=== PATIENT | male | born 1985 | race Two or more races ===

== ENCOUNTER 2025-06-17 21:56 | Day surgery (SDC) | payer MEDICAID, SELFPAY ==
[2025-06-17 23:13] VITALS: BP 120/77; PULSE 82; RESP 16; TEMP 37.2; O2SAT 96; BMI 26.6
--- NOTE | 2025-06-17 23:47 | XR_ITS ---
Examination: CT abdomen with intravenous contrast CT pelvis with intravenous contrast 2-D coronal reconstructions 2-D sagittal reconstructions Date and time of exam:June 18, 2025, 0121 hrs. Indications: Right abdominal pain epigastric pain onset today.. CTDI: vol (mGy) 6.71. DLP: (mGycm) 405. Technique: Multiple axial sections of the abdomen and pelvis have been obtained. 64 slice high-resolution scanner used. 3 mm axial sections have been obtained, post intravenous injection 60 cc [id number]-[id number]. 2-D sagittal, coronal reconstructions obtained. Low dose protocols were performed. One or more of the following dose reduction techniques were used; automated exposure control, adjustment of the mA and/or KV according to patient size, use of iterative reconstruction technique. Findings: No focal liver or splenic lesions. No gallstones. No pancreatic or adrenal mass. No renal or ureteral calculi. Aorta normal size The appendix is fluid-filled thickened with inflammatory change. Tip of the appendix is below the right lobe of the liver, axial image 84 No free air, no pelvic abscess Urinary bladder intact L5-S1 central left paracentral disc protrusion indenting the ventral left margin thecal sac Impression: Acute appendicitis, no pelvic abscess
[2025-06-18] VITALS (11 sets, daily range): BP systolic 107–129; BP diastolic 68–86; PULSE 57–86; RESP 12–18; TEMP 36.3–36.9; O2SAT 92–100
[2025-06-18] LABS: Lactate (Lactic Acid) 1.6 mMol/L (0.4-2.0)
[2025-06-18 00:01] LABS: Basophils # (Auto) 0.1 Thou/mm3 (0.0-0.2); Basophils % (Auto) 0 % (0-2.5); Eosinophils # (Auto) 0.0 Thou/mm3 (0.0-0.5); Eosinophils % (Auto) 0 % (0-10); Hematocrit 45.2 % (41.0-53.0); Hemoglobin 15.4 g/dL (13.5-16.0); Immature Granulocytes Auto 0.06 Thou/mm3 (0.00-0.00); Lymphocytes # (Auto) 1.0 Thou/mm3 (1.0-4.8); Lymphocytes % (Auto) 7 % (10-50); Mean Corpuscular HGB Conc 34.1 g/dl (31.0-37.0); Mean Corpuscular Hemoglobin 30.8 pg (25.0-35.0); Mean Corpuscular Volume 90 fL (80-100); Monocytes # (Auto) 0.6 Thou/mm3 (0.0-0.8); Monocytes % (Auto) 5 % (0-12); Neutrophils # (Auto) 12.4 Thou/mm3 (1.8-7.7); Neutrophils % (Auto) 87 % (37-80); Nucleated Red Blood Cell # 0.00 Thou/mm3 (0.00-0.00); Nucleated Red Blood Cell % 0 /100 WBC (0); Platelet Count 214 Thou/mm3 (140-440); RDW Standard Deviation 40.5 fL (35.1-43.9); Red Blood Count 5.00 Miln/mm3 (4.50-5.90); White Blood Count 14.2 Thou/mm3 (3.8-10.6)
--- NOTE | 2025-06-18 00:05 | XR_ITS ---
Examination: Abdomen sonogram, Limited Date and time of exam: June 18, 2025, 0026 hrs. Indications: Right upper abdominal pain beginning today. Technique: Real-time velázquez scale transabdominal sonographic images of the upper abdomen obtained. Findings: Normal gallbladder. Normal common bile duct 0.10. Pancreatic head 2.0 cm Liver 11.7 cm smooth contour Normal hepatopedal portal venous flow Patent IVC Impression: Negative study
[2025-06-18] MEDS: ONDANSETRON INJ 2 MG/ML INJ 2 ML 4 MG IV (00:15)
[2025-06-18] MEDS: MORPHINE SULF INJ 4 MG/ML VIAL 5 MG IV (00:15)
[2025-06-18 00:30] LABS: Alanine Aminotransferase 38 U/L (10-49); Albumin, Serum 5.0 gm/dL (3.5-5.0); Albumin/Globulin Ratio 2.0 (1.2-2.2); Alcohol, Blood Medical 18.7 mg/dL (0-10.0); Alkaline Phosphatase 75 U/L (46-116); Anion Gap 12 (7-16); Aspartate Amino Transferase 26 U/L (0-34); BUN/Creatinine Ratio 11 Ratio (12-20); Bilirubin,Total 0.6 mg/dL (0.3-1.2); Blood Urea Nitrogen 9 mg/dL (9-23); Calcium 9.8 mg/dL (8.3-10.6); Calcium (Corrected) 9.8 mg/dL (8.5-10.1); Carbon Dioxide 23.0 mMol/L (20.0-31.0); Chloride 106 mMol/L (98-107); Creatinine (Component) 0.8 mg/dL (0.6-1.3); Estimated Creatinine Clearance 110.8 mL/min (>60); Globulin 2.5 gm/dL (2.3-3.5); Glucose 94 mg/dL (74-106); Lipase 38 U/L (12-53); Osmolality,Calculated 279 (275-295); Potassium 4.2 mMol/L (3.4-5.1); Procalcitonin < 0.04 ng/ml (0.0-0.49); Sodium 141 mMol/L (136-145); Total Protein 7.5 gm/dL (5.7-8.2); eGFR > 60 See Note
[2025-06-18 00:53] LABS: Collection Type, Urine Clean Catch; RBC,Urine 0 /hpf (0-3); WBC,Urine 0 /hpf (0-5)
[2025-06-18 01:06] LABS: Amphetamine/Methamp Scrn,U Negative (Negative); Barbiturate Screen,Urine Negative (Negative); Benzodiazepines Screen,Urine Negative (Negative); Benzoylecgonine Screen, Ur Negative (Negative); Fentanyl Screen,Urine Negative (Negative); Opiate Screen,Urine Negative (Negative); THC Screen,Urine Negative (Negative)
[2025-06-18 01:12] LABS: Amorphous Crystals,Urine Present (Absent); Bilirubin,Urine Negative (Negative); Blood,Urine Negative (Negative); Clarity,Urine Turbid (Clear/Hazy); Color,Urine Yellow (Lt Yel-Yel); Culture Indicated,Urine Not Indicated; Glucose, Urine Negative (Negative); Ketones,Urine Trace (Negative); Leukocyte Esterase,Urine Negative (Negative); Nitrite,Urine Negative (Negative); PH,Urine 7.0 (5.0-7.0); Protein,Urine Trace (Neg - Trace); Specific Gravity,Urine 1.027 (1.001-1.035); Squamous Epithelial Cell,Urine 1 /hpf (0-5); Urobilinogen,Urine Negative mg/dL (0.0-1.0)
--- NOTE | 2025-06-18 01:45 | PRELIM_ITS ---
Gallbladder ultrasound. June 18, 2025 at 0026 hours Clinical history: Right upper quadrant/epigastric pain. Findings: The visualized liver is normal in echogenicity. There is no intrahepatic biliary duct dilatation. The portal vein demonstrates hepatopetal flow. No gallbladder calculus, wall thickening or pericholecystic fluid is identified. The common duct is normal in caliber at 1 mm. The inferior vena cava is patent. Impression: No obvious abnormality. Report Electronically Signed By: Tr Pinedo 06/18/2025 1:45:25 AM [EST]
--- NOTE | 2025-06-18 02:04 | PRELIM_ITS ---
CT scan of the abdomen and pelvis with intravenous contrast (axial sections with sagittal and coronal reformats) June 18, 2025 0121 hours Clinical History: RUQ/epigastric pain No prior study is available for comparison. Findings: Bibasilar dependent atelectasis is present. Fatty infiltration of the liver is noted. The gallbladder, pancreas, spleen, kidneys and adrenals are unremarkable. No evidence of bowel dilatation. The appendix is thickened, measuring 10 mm in caliber with mural enhancement and periappendiceal fat stranding (coronal images 74-87/140). The urinary bladder is unremarkable. There is no free fluid or free air.There is no adenopathy. Mild degenerative changes are identified in the spine. There is a medium to large central/left paracentral disc protrusion indenting the thecal sac at L5-S1. Impression: Acute appendicitis. No free air or abscess. Medium to large central/left paracentral disc protrusion at L5-S1. Consider elective followup with MRI. Other findings as described above. Discussion Details: Results verbally communicated to : Dr. Mcgovern at 01:59 AM 06/18/2025 Report Electronically Signed By: Tr Pinedo 06/18/2025 2:04:10 AM [EST]
[2025-06-18] MEDS: SODIUM CHLORIDE 0.9% 1000 ML 1,000 ML 999 ML IV (02:40)
[2025-06-18] MEDS: PIPER/TAZO 3.375 GM PREMIX 3.375 GM/50 ML BAG IV (02:41)
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
[2025-06-18 03:24] LABS: INR 1.0 (0.9-1.3); Partial Thromboplastin Time 25.9 Seconds (22.0-36.0); Prothrombin Time 11.4 Seconds (9.0-12.2)
--- NOTE | 2025-06-18 09:24 | PC.NURSE ---
report given to OR nurse patient to have surgery at 10;30am
--- NOTE | 2025-06-18 09:44 | PD.SURHP ---
HPI Date of Admission 06/18/2025 Chief Complaint Chief Complaint: Right lower quadrant abdominal pain with nausea and vomiting HPI 39-year-old male presented to the emergency department with acute onset of abdominal pain. His pain started 2 days ago around periumbilical region. The pain was initially intermittent. Since yesterday his pain has become persistent, progressively worse and localized over right lower quadrant. He has had nausea and vomiting, but denies fever, chills, diarrhea, constipation or dysuria. He denies having similar symptoms in the past. Review of Systems Constitutional Constitutional: Denies chills and Denies fever(s) Cardiovascular Cardiovascular: Denies chest pain Respiratory Respiratory: Denies cough Gastrointestinal Gastrointestinal: Reports abdominal pain, Reports nausea and Reports vomiting Genitourinary Genitourinary: Denies difficulty urinating Hematologic/Lymphatic Hematologic/Lymphatic: Denies easy bleeding and Denies easy bruising Past Medical History Surgical History OTHER SURGICAL HX: Lumbar spine surgery Social History SMOKING STATUS: Never smoker SUBSTANCE USE: does not use ALCOHOL: Current Meds Home Medications and Allergies Allergies Allergy/AdvReac Type Severity Reaction Status Date / Time No Known Allergies Allergy Verified 06/17/25 21:57 Exam Vital Signs Temp Pulse Resp BP Pulse Ox O2 Del Method 98.4 F 57 L 18 114/73 99 Room Air 06/18/25 07:11 06/18/25 07:11 06/18/25 07:11 06/18/25 07:11 06/18/25 07:11 06/18/25 07:11 Constitutional Constitutional: no acute distress Routine Respiratory Exam Respiratory: Present CTA bilaterally Routine Cardiovascular Exam Cardiovascular: Present RRR Routine Abdominal Exam Abdominal: Present soft, normoactive bowel sounds and tenderness (Right lower quadrant tenderness to palpation with guarding, no rebound tenderness or peritonitis at this time); Absent distended Results Results: Laboratory Laboratory results: results reviewed Results: Imaging CT scan - abdomen: report reviewed and image reviewed CT scan - pelvis: report reviewed and image reviewed Assessment & Plan Problem List (1) Unspecified acute appendicitis: Qualifiers: Acute appendicitis type: unspecified acute appendicitis type Qualified Code(s): K35.80 - Unspecified acute appendicitis Status: Acute Plan Will take pt to OR for laparoscopic possible open appendectomy. Risks, benefits and alternatives to procedure explained to the patient via woodworking machine operator. All his questions answered, he agreed and consented to proceed with the operation. Quality Measures Quality Measures none
--- NOTE | 2025-06-18 10:16 | PC.NURSE ---
patient picked up for surgery
--- NOTE | 2025-06-18 11:21 | SUR.PHASEI ---
1121: Pt. wakes to name then drifts back to sleep, vitals stable, breathing unlabored, no signs of distress, x3 dermabond sites to ABD CDI, no active bleed noted, report received from Jennifer BARONE and Rolo MCDONALD.
--- NOTE | 2025-06-18 11:26 | ESOP_ITS ---
Date of Procedure 06/18/25 Pre Op Diagnosis Acute appendicitis Post Op Diagnosis Acute appendicitis Procedure Laparoscopic appendectomy Findings Inflamed, dilated and hyperemic appendix without perforation Procedure Description Patient was brought into the operating room in supine position. After administration of general endotracheal anesthesia, abdomen was prepped and draped in standard surgical manner. A Veress needle was inserted through the umbilicus and pneumoperitoneum was obtained up to 15 mmHg. The Veress needle was removed and a 5 mm umbilical incision was made. A 5 mm trocar was placed and laparoscopic camera was inserted. Under direct visualization a laparoscopic camera a 5 mm trocar placed in suprapubic region and a 10 mm trocar placed in left lower quadrant. The abdomen was inspected, the cecum was identified and followed until the appendix was identified. The appendix was noted to be inflamed, dilated and hyperemic without perforation. A window was created between the appendix and mesoappendix and the appendix was divided near the appendix and cecal junction with blue Endo DMITRI stapling device. The mes oappendix was divided with velázquez Endo MDITRI stapling device. The appendix was placed inside an Endo Catch and removed from the abdomen utilizing left lower quadrant trocar site. Abdomen and pelvis copiously and thoroughly washed and irrigated, all the fluids were suctioned and the suctioned fluid returned clear. Hemostasis was adequate and satisfactory, staple lines were intact without bleeding or any leakage. Left lower quadrant trocar sites fascial defect was closed with 0 Vicryl using Endo closure device. Instruments and trocars removed, pneumoperitoneum was evacuated and the incisions closed with 4-0 Monocryl subcuticular fashion. Instruments, needles and sponge counts were reported to be correct ??2. Patient tolerated the procedure well, was extubated, breathing spontaneously and without difficulty and was transferred to postanesthesia care in stable condition. Anesthesia GETA and local Pathology / specimen Other (Appendix) Estimated Blood Loss 10 Condition Stable Disposition PACU Surgeon Margo Godoy MD Surgical Staff Operation Date: 06/18/25 10:45 Case Staff HEALTH CARE SANITARY TECHNICIAN: Kamran James RN First Assistant: Susu Bardales
--- NOTE | 2025-06-18 12:20 | SUR.PHASEII ---
1220: Pt. AAOx4, vitals stable, breathing unlabored, no complaint of pain or nausea, x3 dermabond sites to ABD CDI, no active bleed noted, pt. tolerated sips of water well, pt. ambulated to wheelchair with steady gait and no assist, no complications. Gave discharge instructions to the pt. and his ride, both verbalized understanding and had no further questions. Pt. had pt. belongings, no belongings paper was filled out in ER, Received verbal from and pt. that pt. had all belongings.
== END 2025-06-18 12:20 | disposition home or self-care (01) ==
LOC: SERX 06-18 08:32 → S2EX 06-18 09:52
PROVIDERS: Physician Assistant; Emergency Provider Emergency Medicine; PCP Family Medicine; Referring Provider Surgery; Visit Provider Surgery
PROC: 0DTJ4ZZ Resection of Appendix, Percutaneous Endoscopic Approach (ICD-10-PCS; CPT 44970; principal; 2025-06-18 10:30)
DX: K35.30 Acute appendicitis with localized peritonitis, without perforation or gangrene (principal)
CPT/HCPCS: 44970; 36415; 74177; 76705; 80053; 80307; 80320; 81001; 83605; 83690; 84145; 85025; 85610; 85730; 96365; 96375; 99284; A4217; A4649; J0131; J0694; J1171; J1885; J2250; J2270; J2405; J2543; J2704; J3010; J3490; J7030; Q9967; G0480

== ENCOUNTER 2025-09-02 09:40 | Emergency (ER) | payer MEDICAID, SELFPAY ==
[2025-09-02 09:41] VITALS: BMI 29.2
[2025-09-02 09:50] VITALS: BP 133/87; PULSE 67; RESP 18; TEMP 36.4; O2SAT 98; BMI 28.0
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
== END 2025-09-02 11:30 | disposition home or self-care (01) ==
PROVIDERS: Emergency Provider Emergency Medicine; PCP Family Medicine
DX: S13.4XXA Sprain of ligaments of cervical spine, initial encounter (principal); S09.90XA Unspecified injury of head, initial encounter; S29.9XXA Unspecified injury of thorax, initial encounter; V89.9XXA Person injured in unspecified vehicle accident, initial encounter
CPT/HCPCS: 70450; 71045; 72125; 99282

== ENCOUNTER 2025-09-26 17:17 | Emergency (ER) | payer MEDICAID, SELFPAY ==
[2025-09-26 17:28] VITALS: BP 154/96; PULSE 71; RESP 16; TEMP 36.4; O2SAT 98
[2025-09-26 17:29] VITALS: BMI 26.7
--- NOTE | 2025-09-26 17:39 | EDRME_ITS ---
Rapid Medical Screening Exam [facility] Arrival date/time: 09/26/25 17:17 This is a 40-year-old male that comes into the emergency room with complaints of generalized rash that initially started in his groin earlier today and then spread throughout his body. Patient denies any trouble breathing any chest pain shortness of breath. Patient just has a rash throughout body. Patient states that the only medication he is taking is a medication that was [id number] and its for pain but it has a bunch of vitamins in it and it is from [place]. Patient states he has taken this medication before and never had a reaction towards it. Patient also states that prior to this he also had a hamburger from [place]. Patient denies any other complaints. Patient denies any tongue swelling or difficulty breathing. I have greeted and performed a focused initial assessment of this patient. Initial appropriate labs ordered at this time. A comprehensive ED assessment and evaluation of the patient and analysis of all test and completion of medical decision making process will be conducted by additional ED provider. Chief Complaint: Allergic Reaction Time Seen by Provider: 09/26/25 17:38 Vital signs: Vital Signs Temperature 97.5 F 09/26/25 17:28 Pulse Rate 71 09/26/25 17:28 Respiratory Rate 16 09/26/25 17:28 Blood Pressure 154/96 H 09/26/25 17:28 Pulse Oximetry (%) 98 09/26/25 17:28 Oxygen Delivery Method Room Air 09/26/25 17:28 Exam: Breathing even and unlabored, skin warm and dry Clinical Impression: Rash
[2025-09-26] MEDS: FAMOTIDINE 20 MG TABLET 40 MG PO (18:07)
--- NOTE | 2025-09-26 20:29 | EDNOTE_ITS ---
ED Allergic Reaction RME/HPI General Chief complaint: Allergic Reaction Stated complaint: ALLERGIC REACTION, CHILLS, HIVES Time Seen by Provider: 09/26/25 17:38 Arrival date/time: 09/26/25 17:17 40-year-old male that comes into the emergency room with complaints of generalized rash that initially started in his groin earlier today and then spread throughout his body. Patient denies any trouble breathing any chest pain shortness of breath. Patient just has a rash throughout body. Patient states that the only medication he is taking is a medication that was [id number] and its for pain but it has a bunch of vitamins in it and it is from [place]. Patient states he has taken this medication before and never had a reaction towards it. Patient also states that prior to this he also had a hamburger from [employer]. Patient denies any other complaints. Patient denies any tongue swelling or difficulty breathing. Denies any other complaints. RME / HPI RME / HPI narrative: 09/26/25 17:17 Exam: Breathing even and unlabored, skin warm and dry Impression: Rash Related Data Previous Rx's ?Medication ?Instructions ?Recorded azithromycin 250 mg tablet See Rx Instructions PO .COM PLEX #6 02/24/20 tabs ibuprofen 800 mg tablet 800 mg PO Q6H PRN fever #10 tabs 02/24/20 amoxicillin 500 mg tablet 500 mg PO TID #30 tabs 02/28 ciprofloxacin HCl 0.3 % eye drops See Rx Instructions ophthalmic 02/07/24 (eye) .COMPLEX #5 mL docusate sodium 100 mg capsule 100 mg PO BID #20 caps 06/18/25 (Colace) hydrocodone 5 mg-acetaminophen 325 1 tab PO Q6H PRN pa in (scale score 06/18/25 mg tablet 7-10) #10 tabs ibuprofen 600 mg tablet 600 mg PO Q8H PRN pain (scal e 06/18/25 score 4-6) #15 tabs diphenhydramine HCl 25 mg capsule 50 mg (2 x 25 mg) PO TID PRN 09/26/25 (Benadryl) allergic reaction #30 caps Allergies Allergy/AdvReac Type Severity Reaction Status Date / Time No Known Allergies Allergy Verified 09/26/25 17:22 Review of Systems Review of Systems Narrative Review of Systems: Review of system reviewed and within normal limits except mentioned in HPI ED Exam Narrative Physical exam: VITAL SIGNS: Reviewed. GENERAL APPEARANCE: Alert and interactive, follows commands, no acute distress, HEAD AND FACE: Non-traumatic. ENT: PERRL, pink conjunctivitis, eyelid no trauma, Mucous membrane moist. NECK: Supple, nontender, no nuchal rigidity. CHEST: No tenderness, no crepitus, no paradoxical movement, no retractions. LUNGS: Clear, well ventilated, symmetric, no rales, no wheezing, no ronchi, no stridor, good breath sounds bilaterally. HEART: Regular rate, regular rhythm, no murmur, no gallops. ABDOMEN: Soft, positive bowel sounds, nondistended, no guarding, nontender, no rebound, no masses, RECTAL: Deferred. GENITAL: Deferred. NEUROLOGICAL: Gross motor function intact sensory function intact, Appropriate for age. MUSCULOSKELETAL: low back nontender, full range of motion. EXTREMITIES: Nontender, full range of motion. SKIN: Color pink, dry, erythematous rash scattered all over , no lacerations, no abrasions, no contusions. LYMPHATICS: Deferred. Course Quality Measures none Orders Category Date Time Status DiphenhydrAMINE INJ [Benadryl Inj] Med 09/26/25 17:39 Discontinued 50 mg IM X1 ONE Famotidine [Pepcid] Med 09/26/25 17:39 Discontinued 40 mg PO X1 ONE Vital Signs Vital signs: Vital Signs Temperature 97.5 F 09/26/25 17:28 Pulse Rate 71 09/26/25 17:28 Respiratory Rate 16 09/26/25 17:28 Blood Pressure 154/96 H 09/26/25 17:28 Pulse Oximetry (%) 98 09/26/25 17:28 Oxygen Delivery Method Room Air 09/26/25 17:28 Allergic Reaction MDM Narrative MDM Narrative:: 40-year-old male that comes into the emergency room with complaints of generalized rash that initially started in his groin earlier today and then spread throughout his body. Patient denies any trouble breathing any chest pain shortness of breath. Patient just has a rash throughout body. Patient states that the only medication he is taking is a medication that was [id number] and its for pain but it has a bunch of vitamins in it and it is from [place]. Patient states he has taken this medication before and never had a reaction towards it. Patient also states that prior to this he also had a hamburger from [employer]. Patient denies any other complaints. Patient denies any tongue swelling or difficulty breathing. Imaging workup is noted at this time. Patient was given Benadryl and Pepcid with complete resolution of symptoms. Patient is stable for discharge home Patient data External records reviewed:: None Clinical information provided by:: none Social determinants that could affect healthcare access:: none Patient has the following chronic illnesses:: None How is presenting disease/condition affected by chronic disease/condition?: no chronic disease Evaluation data The following diagnostics were reviewed and interpreted by me:: lab results Lab and/or radiology exams considered but not ordered:: None Interpretation Summary: None Medications / Prescriptions Medications or Prescriptions considered but not ordered:: None Medication administrations:: Medication Administration History Discontinued Medications Diphenhydramine HCl (Diphenhydramine Inj 50 Mg/Ml Vial) 50 mg IM X1 ONE Stop: 09/26/25 17:40 Last Admin: 09/26/25 18:08 Dose: 50 mg Documented By: JOSEPH Famotidine (Famotidine 20 Mg Tablet) 40 mg PO X1 ONE Stop: 09/26/25 17:40 Last Admin: 09/26/25 18:07 Dose: 40 mg Documented By: JOSEPH Benadryl Pepcid Consultations Consultation(s) initiated? (list below): No Diagnosis Differential Diagnosis allergic reaction: anaphylaxis, allergic reaction and adverse reaction to drug Most likely diagnosis given after review of the tests above:: Drug allergy Admission Indicated Admission indicated?: not indicated Admission Request Was there a request for admission?: No Disposition Plan Disposition Plan: Discharge Discharge Attestation Discharge Attestation: The patient and all family members were given an opportunity to ask questions and understood the discharge instructions. Discharge instructions specifically effects, indications for sooner follow up or return to the emergency department, and the expected course of current diagnosis. Patient condition: Stable Discharge Plan Plan Patient Disposition: HOME (Self Care) Discharge Disposition comment: stable Prescriptions/Referrals Prescriptions/Med Rec: New diphenhydramine HCl [Benadryl] 25 mg capsule 50 mg PO TID PRN (Reason: allergic reaction) Qty: 30 0RF No Action ibuprofen 800 mg tablet 800 mg PO Q6H PRN (Reason: fever) Qty: 10 0RF azithromycin 250 mg tablet See Rx Instructions .ROUTE .COMPLEX Qty: 6 0RF Rx Instructions: take 500 mg today (day 1), then 250 mg for 4 days (days 2-5) amoxicillin 500 mg tablet 500 mg PO TID Qty: 30 0RF ciprofloxacin HCl 0.3 % drops See Rx Instructions .ROUTE .COMPLEX Qty: 5 0RF Rx Instructions: put 2 drps in affected eye(s) every 4hr x 5days docusate sodium [Colace] 100 mg capsule 100 mg PO BID Qty: 20 0RF hydrocodone-acetaminophen 5-325 mg tablet 1 tab PO Q6H MDD 4 PRN (Reason: pain (scale score 7-10)) Qty: 10 0RF ibuprofen 600 mg tablet 600 mg PO Q8H PRN (Reason: pain (scale score 4-6)) Qty: 15 0RF Referrals: Que Paula MD [Primary Care Provider, Family Practice] - In 1 week Problem List Clinical Impression: Allergic drug rash Patient/Caregiver Discharge Instructions Discharge Activity: activity as tolerated Education Materials: ED Medicine Reaction: Allergic Additional Instructions: Thank you for the opportunity for serving you today. You are stable for disch arged . You are advised to: Follow-up with your PCP in 1 to 2 days Return to ED for worsening of symptoms Increase oral fluids Take medication as prescribed Please stop taking your medication from [place] Print Language: Kittitian Stand Alone Forms: Rebecca Award Info., Patient Portal Info Letter ALON/RESHMA Supervising Physician ALON/RESHMA Supervising Physician: MD Stevie
== END 2025-09-26 20:54 | disposition home or self-care (01) ==
PROVIDERS: Emergency Provider Emergency Medicine; PCP Family Medicine
DX: L27.0 Generalized skin eruption due to drugs and medicaments taken internally (principal); T50.995A Adverse effect of other drugs, medicaments and biological substances, initial encounter
CPT/HCPCS: 96372; 99282; J1200; A9270